=== PATIENT | female | born 1985 | race Caucasian/White ===

== ENCOUNTER 2017-01-02 14:58 | Emergency (ER) | payer MEDICAID ==
[~2017-01-02] VITALS: Ht 160 cm; Wt 71.0 kg
[~2017-01-02 14:58] MED LIST: IRON18TA PO; PREN1TAB49 PO
[2017-01-02 15:02] VITALS: Ht 160 cm; Wt 71.0 kg
[2017-01-02 16:05] LABS: ADD UMIC YES; URINE BILIRUBIN (Dip) NEGATIVE (NEGATIVE); URINE BLOOD (Dip) 2+ (NEGATIVE); URINE COLOR LT. YELLOW (YELLOW); URINE GLUCOSE (Dip) NEGATIVE (NEGATIVE); URINE KETONES (Dip) NEGATIVE (NEGATIVE); URINE LEUKOCYTE ESTERASE (Dip) NEGATIVE (NEGATIVE); URINE NITRITE (Dip) NEGATIVE (NEGATIVE); URINE TOTAL PROTEIN (Dip) NEGATIVE (NEGATIVE); URINE UROBILINOGEN (Dip) 0.2 E.U./dL (0.1-1.0)
[2017-01-02 16:10] LABS: ADD SCAN DIFF NO
[2017-01-02 16:12] LABS: BASOPHILS % 0.3 % (0.0-2.0); EOSINOPHILS # 0.1 10^3/ul (0.0-0.5); EOSINOPHILS % 0.8 % (0.0-7.0); HEMATOCRIT 42.7 % (37.0-47.0); HEMOGLOBIN 13.7 g/dl (12.0-16.0); LYMPHOCYTES # 1.7 10^3/ul (0.8-2.9); LYMPHOCYTES % 27.1 % (15.0-51.0); MEAN CORPUSCULAR HEMOGLOBIN 26.3 pg (29.0-33.0); MEAN CORPUSCULAR HGB CONC 32.1 g/dl (32.0-37.0); MEAN CORPUSCULAR VOLUME 82.1 fl (82.0-101.0); MEAN PLATELET VOLUME 10.3 fl (7.4-10.4); MONOCYTE # 0.4 10^3/ul (0.3-0.9); MONOCYTES % 6.6 % (0.0-11.0); NEUTROPHIL # 3.9 10^3/ul (1.6-7.5); NEUTROPHILS % 64.9 % (39.0-77.0); PLATELET COUNT 299 10^3/UL (140-415); RED CELL DISTRIBUTION WIDTH 13.2 % (11.5-14.5); WHITE BLOOD COUNT 6.1 10^3/ul (4.8-10.8)
[2017-01-02 16:18] LABS: BACTERIA,URINE FEW
--- NOTE | 2017-01-02 16:24 | RADRPT ---
PROCEDURE: US Pelvis/OB. CLINICAL INDICATION: vaginal bleeding TECHNIQUE: Multiple sonographic images of the pelvis were obtained utilizing a transabdominal and endovaginal technique. The images were reviewed on a PACS workstation. COMPARISON: None. FINDINGS: There is a small cystic structure within the endometrium measuring 1.1 cm which would correspond to a calculated gestational age of 5 weeks and 5 days. No pole or yolk sac is yet visualized. The right ovary measures 2.3 x 1.5 x 1.6 cm. The left ovary measures 3.7 x 2.2 x 2.4 cm. There is a small corpus luteum cyst in the left ovary. No significant free fluid is present within the pelvis. RPTAT: AA IMPRESSION: Possible early intrauterine at 5 weeks and 5 days. Close followup ultrasound and hCG is recommended. .Walter Bejarano MD, Date Time Electronically viewed and signed by .Walter Bejarano MD, MD on 01/02/2017 16:24 .S/
[2017-01-02] MEDS ORDERED: CEPH-443 PO (16:58)
--- NOTE | 2017-01-02 17:05 | ERD ---
ER Documentation Chief Complaint Date/Time DATE: 01/02/17 TIME: 16:59 Chief Complaint VAG BLEEDING WITH MILD AP, 7 WEEKS HPI Patient is a 31-year-old female, , who presents emergency department with vaginal bleeding and mild pelvic cramping. Patient states that she is approximately 7 weeks . Patient states that her vaginal bleeding started last night. Patient reports using one pad thus far. She reports dark brown vaginal discharge and minimal bleeding. Patient denies any fevers, chills , nausea, vomiting, back pain, loss of consciousness. Patient states her last menstrual period was on 11-07-16. Patient is currently being seen by an CHANGE ADVISOR and she is taking vitamins. ROS All systems reviewed and are negative except as per history of present illness. Medications Home Meds Active Scripts Cephalexin* (Keflex*) 500 Mg Capsule, 500 MG PO QID for 7 Days, CAP Prov:SOFIE PIERCE PA-C 01/02/17 Reported Medications Iron (Iron) 18 Mg Tablet, 18 MG PO DAILY 09/11/12 Vits W-Ca,Fe,Fa(<1MG) () 1 Tab Tablet, 1 TAB PO DAILY 09/11/12 Vits W-Ca,Fe,Fa(<1MG) () 1 Tab Tablet, 1 TAB PO DAILY 05/29/11 Allergies Allergies: Coded Allergies: No Known Allergy (Verified , 05/31/11) PMhx/Soc Medical and Surgical Hx: pt denies Medical Hx History of Surgery: No Anesthesia Reaction: No Hx Neurological Disorder: No Hx Respiratory Disorders: No Hx Cardiac Disorders: No Hx Psychiatric Problems: No Hx Miscellaneous Medical Probl: No Hx Alcohol Use: No Hx Substance Use: No Hx Tobacco Use: No Smoking Status: Never smoker Physical Exam Vitals Vital Signs Date Time Temp Pulse Resp B/P Pulse Ox O2 Delivery O2 Flow Rate FiO2 01/02/17 15:02 97.9 80 16 117/68 98 Physical Exam GENERAL: Well-developed, well-nourished female. Appears in no acute distress. HEAD: Normocephalic, atraumatic. EYES: Pupils are equally reactive bilaterally. EOMs grossly intact. No conjunctival erythema. ENT: Moist mucous membranes. No uvula deviation. No kissing tonsils. NECK: Supple. No meningismus. Normal range of motion of the neck. LUNG: Clear to auscultation bilaterally. No rhonchi, wheezing, rales or coarse breath sounds. HEART: Regular rate and rhythm. No murmurs, rubs or gallops. ABDOMEN: No scars, ecchymosis or rashes noted. Soft, nontender, and nondistended. Positive bowel sounds in all four quadrants. No rebound tenderness , no guarding. (-) McBurney's point tenderness. No CVA tenderness. BACK: No midline tenderness. EXTREMITIES: Equal pulses bilaterally. No peripheral clubbing, cyanosis or edema. No unilateral leg swelling. NEUROLOGIC: Alert and oriented. Moving all four extremities without any difficulty. Normal speech. Steady gait. SKIN: Normal color. Warm and dry. No rashes or lesions. Result Diagram: 01/02/17 1555 Results 24 hrs Laboratory Tests Test 01/02/17 15:50 01/02/17 15:55 Urine Color LT. YELLOW Urine Clarity CLEAR Urine pH 5.0 Urine Specific [place] <=1.005 Urine Ketones NEGATIVE Urine Nitrite NEGATIVE Urine Bilirubin NEGATIVE Urine Urobilinogen 0.2 E.U./dL Urine Leukocyte Esterase NEGATIVE Urine Microscopic RBC 5-10/HPF Urine Microscopic WBC 2-5/HPF Urine Epithelial Cells FEW Urine Bacteria FEW Urine Hemoglobin 2+ Urine Glucose NEGATIVE% Urine Total Protein NEGATIVE White Blood Count 6.110^3/ul Red Blood Count 5.2010^6/ul Hemoglobin 13.7g/dl Hematocrit 42.7% Mean Corpuscular Volume 82.1fl Mean Corpuscular Hemoglobin 26.3pg Mean Corpuscular Hemoglobin Concent 32.1g/dl Red Cell Distribution Width 13.2% Platelet Count 41879^3/UL Mean Platelet Volume 10.3fl Neutrophils % 64.9% Lymphocytes % 27.1% Monocytes % 6.6% Eosinophils % 0.8% Basophils % 0.3% Nucleated Red Blood Cells % 0.0/100WBC Neutrophils # 3.910^3/ul Lymphocytes # 1.710^3/ul Monocytes # 0.410^3/ul Eosinophils # 0.110^3/ul Basophils # 0.010^3/ul Nucleated Red Blood Cells # 0.010^3/ul Beta HCG, Quantitative 4607.9mIU/ml Procedures/MDM ED COURSE: The patient was stable throughout ED course. I kept the patient and/or family informed of laboratory and diagnostic imaging results throughout the ED course. DIAGNOSTIC IMAGING: Read by radiologist. DIAGNOSTIC IMAGING REPORT Patient: IHSAN MUÑOZ : 1985 Age: 31 Sex: F MR #: [id number] DOS: 01/02/17 0000 Ordering MD: SOFIE PIERCE PA-C Location: [facility] Room/Bed: PROCEDURE: US Pelvis/OB. CLINICAL INDICATION: vaginal bleeding TECHNIQUE: Multiple sonographic images of the pelvis were obtained utilizing a transabdominal and endovaginal technique. The images were reviewed on a PACS workstation. COMPARISON: None. FINDINGS: There is a small cystic structure within the endometrium measuring 1.1 cm which would correspond to a calculated gestational age of 5 weeks and 5 days. No pole or yolk sac is yet visualized. The right ovary measures 2.3 x 1.5 x 1.6 cm. The left ovary measures 3.7 x 2.2 x 2.4 cm. There is a small corpus luteum cyst in the left ovary. No significant free fluid is present within the pelvis. RPTAT: AA IMPRESSION: Possible early intrauterine at 5 weeks and 5 days. Close followup ultrasound and hCG is recommended. .Walter Bejarano MD, MD Date Time Electronically viewed and signed by .Walter Bejarano MD, MD on 01/02/2017 16: 24 .S/ CC: SOFIE PIERCE PA-C MEDICAL DECISION MAKING: This is a 31-year-old female presents with vaginal bleeding 1 day. Patient reports minimal bleeding and pelvic cramping. Vital signs were reviewed. Patient was afebrile. Patient was hemodynamically stable. Urine test was positive. Quantitative b-HCG was 4607.9. Patient was B+, RhoGam was not given. CBC showed no evidence of systemic infection or severe anemia. Urinalysis showed 2- 5 WBCs, few bacteria. I will empirically treat patient for urinary tract infection at this time. Low suspicion for nephrolithiasis or pyelonephritis. Pelvic US showed possible early intrauterine of 5 weeks and 5 days. Close follow-up ultrasound and beta-hCG is recommended. Given these findings, the patient's presentation is most consistent with vaginal bleeding in the first trimester and threatened . Unable to rule out spontaneous or confirm IUP at this time given early state. I have a much lower clinical concern for ectopic , ruptured ectopic , molar , subchorionic hematoma, complete , missed , placental abruption, placental previa, vasa previa, uterine rupture, anembyronic , demise. PRESCRIPTIONS: Keflex DISCHARGE: At this time, patient is stable for discharge and outpatient management. I had a conversation at length with the patient about the concerns of vaginal bleeding during the 1st trimester of . Patient and/or family understands that her vaginal bleeding can be a normal finding or a sign of miscarriage. I have instructed the patient to follow-up with her OBGYN in 1-2 days for further monitoring including a repeat b-HCG level and ultrasound. I have instructed the patient to promptly return to the ER at any time for any new or worsening symptoms including increased pain, nausea, vomiting, continued bleeding, weakness, syncope or fever. The patient and/or family expressed understanding of and agreement with this plan. All questions were answered. Home care instructions were provided. Departure Diagnosis: Primary Impression: Vaginal bleeding in patient at less than 20 weeks ges... Additional Impression: UTI (urinary tract infection) Urinary tract infection type: site unspecified Hematuria presence: with hematuria Qualified Code: N39.0 - Urinary tract infection with hematuria, site unspecified Condition: Stable Patient Instructions: Bleeding During Early Referrals: [facility] YOU HAVE RECEIVED A MEDICAL SCREENING EXAM AND THE RESULTS INDICATE THAT YOU DO NOT HAVE A CONDITION THAT REQUIRES URGENT TREATMENT IN THE EMERGENCY DEPARTMENT. FURTHER EVALUATION AND TREATMENT OF YOUR CONDITION CAN WAIT UNTIL YOU ARE SEEN IN YOUR DOCTORS OFFICE WITHIN THE NEXT 1-2 DAYS. IT IS YOUR RESPONSIBILITY TO MAKE AN APPOINTMENT FOR FOLOW-UP CARE. IF YOU HAVE A PRIMARY DOCTOR --you should call your primary doctor and schedule an appointment IF YOU DO NOT HAVE A PRIMARY DOCTOR YOU CAN CALL OUR PHYSICIAN REFERRAL HOTLINE AT IF YOU CAN NOT AFFORD TO SEE A PHYSICIAN YOU CAN CHOSE FROM THE FOLLOWING [facility] [address] [facility]. [facility] [address] [facility]. [facility] [address] [facility] [address] [facility] [phone] [address] [facility]. [facility]. [address] [facility]. [facility] YOU HAVE RECEIVED A MEDICAL SCREENING EXAM AND THE RESULTS INDICATE THAT YOU DO NOT HAVE A CONDITION THAT REQUIRES URGENT TREATMENT IN THE EMERGENCY DEPARTMENT. FURTHER EVALUATION AND TREATMENT OF YOUR CONDITION CAN WAIT UNTIL YOU ARE SEEN IN YOUR DOCTORS OFFICE WITHIN THE NEXT 1-2 DAYS. IT IS YOUR RESPONSIBILITY TO MAKE AN APPOINTMENT FOR FOLOW-UP CARE. IF YOU HAVE A PRIMARY DOCTOR --you should call your primary doctor and schedule and appointment IF YOU DO NOT HAVE A PRIMARY DOCTOR YOU CAN CALL OUR PHYSICIAN REFERRAL HOTLINE AT . IF YOU CAN NOT AFFORD TO SEE A PHYSICIAN YOU CAN CHOSE FROM THE FOLLOWING [facility] INSTITUTIONS: [facility] [address] [place] [address] [facility] [address] [place] [address] [facility] [address] [place] [address] CHANGE ADVIS[place] [address] [facility] [address] [place] [phone] OFFICE FAX [address] [place] [place] [id number] [address] [place] [id number] [address] [facility], [address] [address] [address] [place], [place] [id number] [facility] [address] [place] [address] [facility] [id number] - [address] COPE, [place] [address], [facility] [address] [address] ARIZMENDI, [place] [address] [facility]. [address], [facility] [address] [address] GABRIEL, [place] [address] [place], [place] [phone] Additional Instructions: Llame al doctor/OBGYN MAANA y shwetha bakari MARTÍN PARA DENTRO DE 1-2 HOYOS.Dgale a la secretaria que nosotros le instruimos hacer esta martín.Avise o llame si chakraborty condicin se empeora antes de la martín. Regresa aqui si peor o no mejor. Recheck B-HCG in 2 days. SOFIE PIERCE PA-C Jan 02, 2017 17:05
== END 2017-01-02 17:12 | disposition home or self-care (01) ==
LOC: FTE 14:58
DX: O20.9 Hemorrhage in early pregnancy, unspecified (principal); O23.41 Unspecified infection of urinary tract in pregnancy, first trimester; R10.2 Pelvic and perineal pain; Z3A.01 Less than 8 weeks gestation of pregnancy
CPT/HCPCS: 76801; 76817; 81001; 81003; 84702; 85025; 86900; 86901; Z7502

== ENCOUNTER 2017-01-05 15:43 | Emergency (ER) | payer MEDICAID ==
[~2017-01-05] VITALS: Ht 157.5 cm; Wt 71.0 kg
[~2017-01-05 15:43] MED LIST changes: +CEPH-443 PO
[2017-01-05 15:56] VITALS: Ht 157.5 cm; Wt 71.0 kg
--- NOTE | 2017-01-05 18:36 | RADRPT ---
AMENDMENT: 01/05/2017 7:19:07 PM Gonzalo Greenfield M.d Correction: No sonographic evidence for a pole or yolk sac is seen. Results were discussed with Jules Hammonds at 01/05/2017 7:19:06 PM PROCEDURE: US Pelvis. CLINICAL INDICATION: Vaginal bleeding TECHNIQUE: Multiple sonographic images of the pelvis were obtained utilizing a transabdominal and endovaginal technique. The images were reviewed on a PACS workstation. COMPARISON: 01/02/2017 FINDINGS: A single intrauterine gestational sac is seen. The foot of polio sac is identified. Interstitial s ac diameter is 1 cm which gives advancement positional age of 5 weeks and 5 days. There is trace am ount of free fluid. The right ovary has a normal echotexture and measures 2.2 x 1 x 1.5 cm. A left o varian cystic structure seen with peripheral color flow consistent with a corpus luteum cyst and ols sures 2.3 cm in maximal diameter. The remainder of the left ovary has a normal echotexture and real ures 3 x 2 x 2.3 cm. No adnexal masses are noted. IMPRESSION: Single intrauterine gestational sac without evidence of a pole. The findings may still repres ent an early . Continued follow-up as well as correlation with serial beta HCG levels is re commended. RPTAT: HPNM Physician Byron Date Time Electronically viewed and signed by Physician Byron on 01/05/2017 19:19 /
--- NOTE | 2017-01-05 19:09 | ERD ---
ER Documentation Chief Complaint Date/Time DATE: 01/05/17 TIME: 19:04 Chief Complaint VAGINAL BLEEDING X 4 DAYS, HERE FOR RECHECK SEEN HERE ON THURSDAY HPI This 31-year-old female presents with vaginal bleeding which is been intermittent for last 4 days. She has some mild suprapubic cramping. She denies fevers, vomiting, dysuria. She is a G3 para 1. She is here 2 days ago and had quantitative hCG approximately 4600 and gestational sac visible on ultrasound without pole or yolk sac. She is here for 2 day recheck ROS All systems reviewed and are negative except as per history of present illness. Medications Home Meds Active Scripts Cephalexin* (Keflex*) 500 Mg Capsule, 500 MG PO QID for 7 Days, CAP Prov:SOFIE PIERCE PA-C 01/02/17 Reported Medications Iron (Iron) 18 Mg Tablet, 18 MG PO DAILY 09/11/12 Vits W-Ca,Fe,Fa(<1MG) () 1 Tab Tablet, 1 TAB PO DAILY 09/11/12 Vits W-Ca,Fe,Fa(<1MG) () 1 Tab Tablet, 1 TAB PO DAILY 05/29/11 Allergies Allergies: Coded Allergies: No Known Allergy (Verified , 05/31/11) PMhx/Soc History of Surgery: No Anesthesia Reaction: No Hx Neurological Disorder: No Hx Respiratory Disorders: No Hx Cardiac Disorders: No Hx Psychiatric Problems: No Hx Miscellaneous Medical Probl: No Hx Alcohol Use: No Hx Substance Use: No Hx Tobacco Use: No Physical Exam Vitals Vital Signs Date Time Temp Pulse Resp B/P Pulse Ox O2 Delivery O2 Flow Rate FiO2 01/05/17 15:56 97.3 73 18 119/72 100 Physical Exam Const: [] Head: Atraumatic Eyes: Normal Conjunctiva ENT: Normal External Ears, Nose and Mouth. Neck: Full range of motion..~ No meningismus. Resp: Clear to auscultation bilaterally Cardio: Regular rate and rhythm, no murmurs Abd: Soft, non tender, non distended. Normal bowel sounds Skin: No petechiae or rashes Back: No midline or flank tenderness Ext: No cyanosis, or edema Neur: Awake and alert Psych: Normal Mood and Affect Results 24 hrs Laboratory Tests Test 01/05/17 17:35 Beta HCG, Quantitative 4415.9mIU/ml Procedures/MDM Quantitative hCG is 4400 which is less than 2 days ago. Pelvic ultrasound shows similar reading to 2 days prior with single intrauterine gestational sac without evidence of pole. According to the radiologist there is no yolk sac identified as well. Patient presents with signs and symptoms of decreasing hCGs and no visible viable and ultrasound. Ectopic still cannot be ruled out but patient has minimal pain. Recommending additional 2-3 days recheck for hCG and ultrasound until yolk sac or pole can be identified. Patient should return sooner for worsening pain, fever, vomiting, new worsening symptoms. Signs and symptoms not consistent with appendicitis or additional causes of her abdominal pain or vaginal bleeding. Departure Diagnosis: Primary Impression: Vaginal bleeding in patient at less than 20 weeks ges... Condition: Stable Patient Instructions: Bleeding During Early Additional Instructions: HORMONES ESTA MAS ABAJO. ULTRASONIDO ES EL MISMO. CHEQUE OTOR VEZ 2-3 HOYOS PARA CHEQUE OTOR VEZ, MAS PRONTO PARA NUEVA SIMPTOMAS. GURINDER MOREJON MD Jan 05, 2017 19:09
[2017-01-05 19:28] VITALS: BP 121/69; PULSE 80; RESP 16; TEMP 98.1
== END 2017-01-05 19:30 | disposition home or self-care (01) ==
LOC: FTE 15:43
DX: O20.9 Hemorrhage in early pregnancy, unspecified (principal); Z3A.01 Less than 8 weeks gestation of pregnancy
CPT/HCPCS: 36415; 76801; 76817; 84702; Z7502

== ENCOUNTER 2018-08-09 15:00 | Inpatient (IN) | END 2018-08-11 21:55 | disposition home or self-care (01) | DRG 807 ==